=== PATIENT | female | born 1995 | race Caucasian/White ===

== ENCOUNTER 2016-07-30 21:13 | Emergency (ER) | payer SELFPAY ==
[~2016-07-30] VITALS: Ht 162.6 cm; Wt 70.5 kg
[~2016-07-30 21:13] MED LIST: ALBUTEROL0.09 MG/A1 IH; AMOXICILLIN 8751 TAB PO; CEPHALEXIN500 M1 PO; CRYSELLE 30 MCG1 TAB PO; DEPO-PROVER400 MG/ML IM; IBUPROFEN200 M1 PO; NAPROSYN500 MG PO; NO HOME MEDICATIONS; NORCO 325 MG-51 TAB PO; ORTHO EVRA1 TD1 TD; PHENERGAN 25 TA25 MG PO; PREDNISONE20 MG PO; VOLTAREN 75 DR75 MG PO
[2016-07-30 21:15] VITALS: TEMP 98.1
[2016-07-30 21:45] LABS: BASO % 0.3 % (0.0-2.0); EOS # 0.1 (0.0-0.7); EOS % 1.4 % (0-4.0); GRAN # 5.7 (1.4-6.5); GRAN % 55.9 % (42.2-75.2); HEMATOCRIT 40.2 % (37.0-47.0); HEMOGLOBIN 13.9 g/dl (12.5-16.0); LYMPH # 3.6 (1.2-3.4); LYMPH % 35.8 % (20.0-51.0); MEAN CELL VOLUME 86 fl (80.0-100.0); MEAN CORPUSCULAR HEMOGLOBIN 30 pg (27.0-31.0); MEAN CORPUSCULAR HGB CONC 35 g/dl (33.0-37.0); MEAN PLATELET VOLUME 10.1 fl (7.4-10.4); MONO # 0.7 (0.1-0.6); MONO % 6.4 % (1.7-9.3); PLATELET COUNT 294 K/mm3 (130-400); REDCELL DISTRIBUTION WIDTH-CV 11.9 % (11.5-14.5); WHITE BLOOD COUNT 10.2 K/mm3 (4.8-10.8)
[2016-07-30 21:55] LABS: ADJUSTED CALCIUM 8.8 mg/dL (8.4-10.2); ALBUMIN 4.3 gm/dL (3.5-5.0); BILIRUBIN,TOTAL 0.7 mg/dL (0.0-1.0); CREATININE, serum 0.72 mg/dL (0.52-1.25); POTASSIUM 3.8 mmol/L (3.4-5.0); TOTAL PROTEIN 7.3 gm/dL (6.4-8.2)
[2016-07-30] MEDS ORDERED: ANTIVERT 25MG25 MG PO (23:07)
[2016-07-30 23:17] VITALS: BP 127/88; PULSE 91
== END 2016-07-30 23:18 | disposition home or self-care (01) ==
LOC: COL.ER 21:13
PROVIDERS: Emergency Medicine
DX: R42 Dizziness and giddiness (principal)
CPT/HCPCS: J7030

== ENCOUNTER 2016-09-05 09:15 | Emergency (ER) | payer SELFPAY ==
[~2016-09-05] VITALS: Ht 162.6 cm; Wt 72.7 kg
[~2016-09-05 09:15] MED LIST changes: +ANTIVERT 25MG25 MG PO
[2016-09-05 09:23] VITALS: BP 119/73; PULSE 86; TEMP 98.7
[2016-09-05] MEDS ORDERED: CEPHALEXIN500 M1 PO (10:03)
== END 2016-09-05 10:44 | disposition home or self-care (01) ==
LOC: COL.ER 09:15
DX: L03.032 Cellulitis of left toe (principal)

== ENCOUNTER 2016-10-15 10:23 | Emergency (ER) | payer SELFPAY ==
[~2016-10-15] VITALS: Ht 162.6 cm; Wt 73.6 kg
[2016-10-15 10:27] VITALS: BP 140/75; TEMP 98
[2016-10-15 10:56] LABS: PH 6 (5-8); SQUAMOUS EPITHELIAL 0-2 /hpf; URINE APPEARANCE Clear; URINE BACTERIA Rare /hpf; URINE BILIRUBIN Negative (NEGATIVE); URINE BLOOD 1+ (NEGATIVE); URINE COLOR Straw; URINE GLUCOSE Negative (NEGATIVE); URINE KETONE Negative (NEGATIVE); URINE RBC 0-2 /hpf; URINE UROBILINOGEN Negative (NEGATIVE); URINE WBC 0-2 /hpf
[2016-10-15] MEDS ORDERED: PREDNISONE20 MG PO (12:08)
[2016-10-15 12:17] VITALS: PULSE 89
== END 2016-10-15 12:18 | disposition home or self-care (01) ==
LOC: COL.ER 10:23
PROVIDERS: Physician Assistant Medical
DX: M54.5 Low back pain (principal)
CPT/HCPCS: J1885; J7512

== ENCOUNTER 2016-10-23 23:24 | Emergency (ER) | payer SELFPAY ==
[~2016-10-23] VITALS: Ht 162.6 cm; Wt 72.7 kg
[2016-10-23 23:28] VITALS: BP 144/79; TEMP 98.3
[2016-10-23] MEDS ORDERED: FLEXERIL 1010 MG/TAB PO (23:57)
[2016-10-24 00:18] VITALS: PULSE 107
== END 2016-10-24 00:18 | disposition home or self-care (01) ==
LOC: COL.ER 23:24
DX: M54.5 Low back pain (principal); M62.830 Muscle spasm of back
CPT/HCPCS: J1885

== ENCOUNTER 2018-07-31 14:35 | Emergency (ER) | payer SELFPAY ==
[~2018-07-31] VITALS: Ht 162.6 cm; Wt 83.1 kg
[~2018-07-31 14:35] MED LIST changes: +FLEXERIL 1010 MG/TAB PO
[2018-07-31 14:45] VITALS: TEMP 99.1
[2018-07-31 15:43] VITALS: BP 133/62; PULSE 86
== END 2018-07-31 15:43 | disposition home or self-care (01) ==
LOC: COL.ER 14:35
DX: R07.89 Other chest pain (principal); F17.210 Nicotine dependence, cigarettes, uncomplicated

== ENCOUNTER 2020-05-05 08:13 | Day surgery (SDC) | payer BC ==
[~2020-05-05] VITALS: Ht 160 cm; Wt 83.3 kg
[~2020-05-05 08:13] MED LIST changes: +AMOXICILLIN875 MG PO
[2020-05-05 08:48] VITALS: BP 140/98; PULSE 91; TEMP 98.4
[2020-05-05] MEDS ORDERED: MINIPRESS 1M1 MG/CAP PO (08:56)
[2020-05-05] MEDS ORDERED: XANAX 1MG1 MG PO (08:56)
[2020-05-05] MEDS ORDERED: CRYSELLE 30 MCG1 TAB PO (08:59)
[2020-05-05 09:50] VITALS: BP 111/64; PULSE 87
--- NOTE | 2020-05-05 09:50 | NUR ---
Pt to [facility] via cart from [facility]. Pt drowsy, but awake and alert. Pt ambulates to recliner with stand by assistance. Warm blankets given. Pt denies pain or nausea.Muffin and juice given per pt request. Will continue to monitor call light within reach.
[2020-05-05 10:05] VITALS: BP 124/79; PULSE 98
--- NOTE | 2020-05-05 10:05 | NUR ---
Pt continues to rest. Pt denies needs. Tolerating food and fluids without difficulties. Call light within reach.
[2020-05-05 10:20] VITALS: BP 119/71; PULSE 85
--- NOTE | 2020-05-05 10:20 | NUR ---
Pt continues to rest. IV site discontinued with all parts intact. Pt continues to rest. Will continue to monitor. Call light within reach.
--- NOTE | 2020-05-05 10:35 | NUR ---
Discharge instructions reviewed. Pt voices understanding. Pt up to dress. Call light within reach.
--- NOTE | 2020-05-05 10:40 | NUR ---
Pt escorted to private car via wheel chair. Pt accompanied home by her significant other.
== END 2020-05-05 10:40 | disposition home or self-care (01) ==
LOC: SDCO 08:13
DX: K29.50 Unspecified chronic gastritis without bleeding (principal); Q39.8 Other congenital malformations of esophagus; K63.4 Enteroptosis; R19.7 Diarrhea, unspecified; G43.909 Migraine, unspecified, not intractable, without status migrainosus; F41.9 Anxiety disorder, unspecified; F43.10 Post-traumatic stress disorder, unspecified; Z87.891 Personal history of nicotine dependence
CPT/HCPCS: J2704; J7030

== ENCOUNTER 2021-09-09 23:15 | Emergency (ER) | payer BC ==
[~2021-09-09] VITALS: Ht 157.5 cm; Wt 81.8 kg
[~2021-09-09 23:15] MED LIST changes: +MINIPRESS 1M1 MG/CAP PO; +XANAX 1MG1 MG PO
[2021-09-09 23:27] VITALS: TEMP 97.7
[2021-09-10] MEDS ORDERED: ZANAFLEX 4MG TAB4 MG PO (01:32)
[2021-09-10] MEDS ORDERED: NAPROSYN500 MG PO (01:32)
[2021-09-10 01:39] VITALS: BP 118/73; PULSE 88
== END 2021-09-10 01:39 | disposition home or self-care (01) ==
LOC: COL.ER 23:15
DX: M54.2 Cervicalgia (principal); M79.18 Myalgia, other site
CPT/HCPCS: J1885